=== PATIENT | male | born 1930 | race Caucasian/White ===

== ENCOUNTER → 2017-03-14 | Outpatient (CLI) | payer MEDICARE, BC ==
[~2017-03-14] MED LIST: ALDACTONE100 MG; ASPIR 8181 MG PO; COREG6.25 MG PO; DELTASONE20 MG PO; DIOVAN40 MG; DULERA 200 MCG/51 EA INH; GLIPIZIDE10 MG PO; LANTUS (IN100 UNIT/M SUB-Q; LEVAQUIN750 MG PO; LIPITOR20 M1 PO; NORVASC5 MG PO; PLAVIX75 MG PO; PREVACID30 MG PO; PROVENTIL OR V6.7 GM INH; SPIRIVA18 MCG INH; WARFARIN SODIU2.5 MG PO; WARFARIN SODIUM5 MG PO
== END | disposition disaster alternative care site (69) ==
LOC: GAMB 13:22
DX: R07.9 Chest pain, unspecified (principal); Z79.82 Long term (current) use of aspirin; Z79.01 Long term (current) use of anticoagulants; Z79.899 Other long term (current) drug therapy
CPT/HCPCS: A0422; A0425; A0427

== ENCOUNTER → 2017-03-14 | Outpatient (CLI) | payer MEDICARE, BC | END | disposition disaster alternative care site (69) | LOC: GAMB 05:27 | DX: R07.9 Chest pain, unspecified (principal); R11.2 Nausea with vomiting, unspecified; Z79.82 Long term (current) use of aspirin; Z79.01 Long term (current) use of anticoagulants; Z79.899 Other long term (current) drug therapy | CPT/HCPCS: A0422; A0425; A0427; J2405; J7030 ==